=== PATIENT | female | born 1970 | race Caucasian/White ===

== ENCOUNTER → 2019-02-11 | Outpatient (CLI) | payer OTHER ==
[~2019-02-11] MED LIST: DIPH25CA61 PO; ETHI1TAB26 PO; FIORICET; HYDR-3307 PO; TRAM50TA2 PO
[2019-02-11 11:47] LABS: BASOPHILS # (AUTO) 0.03 x10^3/uL (0-0.1); BASOPHILS % (AUTO) 0 % (0-1); EOSINOPHILS # (AUTO) 0.03 x10^3/uL (0-0.4); EOSINOPHILS % (AUTO) 1 % (1-7); LYMPHOCYTES # (AUTO) 1.79 x10^3/uL (1-3.4); LYMPHOCYTES % (AUTO) 28 % (22-44); MD NO; MEAN CORPUSCULAR HGB CONC 34.6 g/dL (32.4-35.8); MEAN CORPUSCULAR VOLUME 95.3 fL (80-100); MONOCYTES % (AUTO) 5 % (2-9); NEUTROPHILS # (AUTO) 4.32 x10^3/uL (1.8-6.8); NEUTROPHILS % (AUTO) 67 % (42-75); PLATELET COUNT 161 x10^3/uL (130-400); RED BLOOD COUNT 4.27 x10^6/uL (3.82-5.3); RED CELL DISTRIBUTION WIDTH 12.8 % (9.6-15.2)
[2019-02-11 11:51] LABS: ANION GAP 5 mmol/L (5-15); CALCIUM 8.7 mg/dL (8.5-10.1); CHLORIDE 112 mmol/L (98-107); CREATININE 0.68 mg/dL (0.55-1.02)
== END | disposition home or self-care (01) ==
LOC: STAR 10:36
PROVIDERS: ATTEND Obstetrics & Gynecology
DX: Z01.818 Encounter for other preprocedural examination (principal); R10.2 Pelvic and perineal pain; N83.209 Unspecified ovarian cyst, unspecified side
CPT/HCPCS: 36415; 80048; 85025; 93005

== ENCOUNTER 2019-02-19 09:29 | Day surgery (SDC) | payer OTHER ==
[~2019-02-19] VITALS: Ht 165.1 cm; Wt 69.1 kg
[~2019-02-19 09:29] MED LIST changes: +BUPIVACAINE/PF 0.25% ONE; +EPINEPHRINE 1 MG/ML, 1ML ONE; +INDIGO CARMINE 0.8%, 5ML ONE
[2019-02-19] MEDS ORDERED: SCOPOLAMINE PATCH, 1.5MG PATCH.TD72 TD ONE (10:30)
[2019-02-19] MEDS ORDERED: OxyconTIN ER 20 MG TAB.ER PO ONE (10:30)
[2019-02-19] MEDS ORDERED: FAMOTIDINE 20 MG TABLET PO ONE (10:30)
[2019-02-19] MEDS ORDERED: ACETAMINOPHEN 500 MG TABLET PO ONE (10:30)
[2019-02-19] MEDS ORDERED: GABAPENTIN 300 MG CAPSULE PO ONE (10:30)
[2019-02-19] MEDS ORDERED: LIDOCAINE-MPF 1%, 2ML INFIL ONE (10:30)
[2019-02-19] MEDS ORDERED: ONDANSETRON 2MG/ML, 2ML ONE (10:36)
[2019-02-19] MEDS: LACTATED RINGERS 1,000 ML IV SCH ×2 (10:36→10:56)
[2019-02-19] MEDS ORDERED: ONDANSETRON 2MG/ML, 2ML IVPush ONE (11:00)
[2019-02-19] MEDS ORDERED: HYDROcodone/APAP 7.5-325MG/15ML UDC PO PRN (12:30)
[2019-02-19] MEDS ORDERED: OXYcodone 5 MG/5 ML ORAL.SOL UDC PO PRN (12:30)
[2019-02-19] MEDS ORDERED: KETOROLAC 30 MG/1 ML IV PRN (12:30)
[2019-02-19] MEDS ORDERED: LABETALOL 5MG/ML, 20ML IV PRN (12:30)
[2019-02-19] MEDS ORDERED: MIDAZOLAM 1 MG/ML, 2ML IV PRN (12:30)
[2019-02-19] MEDS ORDERED: MEPERIDINE/PF 25MG/0.5ML IVPush PRN (12:30)
[2019-02-19] MEDS ORDERED: ONDANSETRON 2MG/ML, 2ML IVPush PRN (12:30)
[2019-02-19] MEDS ORDERED: METOCLOPRAMIDE 5 MG/ML, 2ML IV PRN (12:30)
[2019-02-19] MEDS ORDERED: BUPIVACAINE/PF 0.25% ONE (13:26)
[2019-02-19] MEDS ORDERED: EPINEPHRINE 1 MG/ML, 1ML ONE (13:26)
[2019-02-19] MEDS ORDERED: MIDAZOLAM 1 MG/ML, 5ML ONE (13:29)
[2019-02-19] MEDS ORDERED: DEXAMETHASONE 4 MG/ML, 1ML ONE (13:29)
[2019-02-19] MEDS ORDERED: GLYCOPYRROLATE 0.2MG/1ML, 5ML ONE (13:29)
[2019-02-19] MEDS ORDERED: ROCURONIUM 10 MG/ML,10ML ONE (13:29)
[2019-02-19] MEDS ORDERED: CEFAZOLIN 1,000 MG ONE (13:29)
[2019-02-19] MEDS ORDERED: LIDOCAINE-MPF 2% ,5ML ONE (13:29)
[2019-02-19] MEDS ORDERED: FENTANYL PF 250 MCG/5ML ONE (13:29)
[2019-02-19] MEDS ORDERED: PROPOFOL 10 MG/ML, 20ML ONE ×2 (13:29→14:09)
[2019-02-19] MEDS ORDERED: FLUORESCEIN SODIUM 500 MG/5 ML ONE (14:18)
[2019-02-19] MEDS ORDERED: FENTANYL PF 100 MCG/2ML ONE (15:47)
[2019-02-19] MEDS ORDERED: HYDROmorphone 2 MG/ML, 1ML ONE (15:47)
[2019-02-19] MEDS ORDERED: OXYcodone 5 MG/5 ML ORAL.SOL UDC ONE (15:48)
[2019-02-19] MEDS: HYDROmorphone 1 MG/ML, 1ML INJ IV PRN ×2 (16:12→16:42)
[2019-02-19] MEDS: FENTANYL PF 100 MCG/2ML IV PRN ×3 (16:16→16:42)
[2019-02-19] MEDS ORDERED: KETOROLAC 30 MG/1 ML ONE (16:17)
[2019-02-19] MEDS ORDERED: MEPERIDINE/PF 25MG/ML,1ML ONE (16:59)
== END 2019-02-19 19:05 | disposition home or self-care (01) ==
LOC: OUT 09:29
PROVIDERS: ATTEND Obstetrics & Gynecology
DX: N83.01 Follicular cyst of right ovary (principal); N30.10 Interstitial cystitis (chronic) without hematuria; G43.829 Menstrual migraine, not intractable, without status migrainosus; Z79.3 Long term (current) use of hormonal contraceptives; Z79.891 Long term (current) use of opiate analgesic; Z79.899 Other long term (current) drug therapy; Z88.8 Allergy status to other drugs, medicaments and biological substances; Z80.3 Family history of malignant neoplasm of breast
CPT/HCPCS: 52260; 58552; 81025; 88307; J0171; J0690; J1100; J1170; J1885; J2175; J2250; J2405; J2704; J3010; J3490; J7120

== ENCOUNTER 2019-08-27 15:59 | Emergency (ER) | payer OTHER ==
[~2019-08-27] VITALS: Ht 167.6 cm; Wt 71.5 kg
[~2019-08-27 15:59] MED LIST changes: -BUPIVACAINE/PF 0.25% ONE; -EPINEPHRINE 1 MG/ML, 1ML ONE; -HYDR-3307 PO; +HYDR-36 PO; -INDIGO CARMINE 0.8%, 5ML ONE
[2019-08-27 16:51] VITALS: BP 134/85
[2019-08-27 16:51] LABS: BASOPHILS # (AUTO) 0.02 x10^3/uL (0-0.1); BASOPHILS % (AUTO) 0 % (0-1); EOSINOPHILS # (AUTO) 0.09 x10^3/uL (0-0.4); EOSINOPHILS % (AUTO) 1 % (1-7); LYMPHOCYTES # (AUTO) 2.57 x10^3/uL (1-3.4); LYMPHOCYTES % (AUTO) 40 % (22-44); MD NO; MEAN CORPUSCULAR HEMOGLOBIN 32.1 pg (27.0-34.8); MEAN CORPUSCULAR HGB CONC 33.3 g/dL (32.4-35.8); MEAN CORPUSCULAR VOLUME 96.4 fL (80-100); MEAN PLATELET VOLUME 8.8 fL (7.4-10.4); MONOCYTES # (AUTO) 0.57 x10^3/uL (0.2-0.8); MONOCYTES % (AUTO) 9 % (2-9); NEUTROPHILS # (AUTO) 3.17 x10^3/uL (1.8-6.8); NEUTROPHILS % (AUTO) 50 % (42-75); PLATELET COUNT 194 x10^3/uL (130-400); RED BLOOD COUNT 4.31 x10^6/uL (3.82-5.3); RED CELL DISTRIBUTION WIDTH 12.4 % (9.6-15.2)
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
[2019-08-27 16:59] LABS: ALANINE AMINOTRANSFERASE 21 U/L (12-78); ALBUMIN 3.7 g/dL (3.4-5.0); ANION GAP 7 mmol/L (5-15); CALCIUM 8.5 mg/dL (8.5-10.1); CHLORIDE 105 mmol/L (98-107); CREATININE 0.66 mg/dL (0.55-1.02)
[2019-08-27 17:04] LABS: ALKALINE PHOSPHATASE 84 U/L (45-117); BILIRUBIN,TOTAL 0.4 mg/dL (0.2-1.0); TOTAL PROTEIN 7.1 g/dL (6.4-8.2); TROPONIN I < 0.015 ng/mL (0.000-0.045)
[2019-08-27] MEDS ORDERED: ONDANSETRON ODT 8 MG PO ONE (17:30)
[2019-08-27] MEDS ORDERED: KETOROLAC 30 MG/1 ML IM ONE (17:30)
[2019-08-27] MEDS ORDERED: KETOROLAC 60 MG/2 ML ONE (17:47)
[2019-08-27] MEDS ORDERED: ONDANSETRON ODT 8 MG ONE (17:47)
== END 2019-08-27 18:32 | disposition home or self-care (01) ==
LOC: ED 17:58
DX: R07.2 Precordial pain (principal); R07.89 Other chest pain; G43.009 Migraine without aura, not intractable, without status migrainosus; Z87.891 Personal history of nicotine dependence
CPT/HCPCS: 36415; 71045; 80053; 84484; 85025; 85379; 93005; 96372; 99284; J1885; Q0162